=== PATIENT | male | born 1945 | race Caucasian/White ===

== ENCOUNTER 2016-12-09 01:53 | Emergency (ER) | payer OTHER, BC ==
[~2016-12-09] VITALS: Ht 172.7 cm; Wt 88.5 kg
[2016-12-09] MEDS ORDERED: FISH OIL 1,001000 M2 PO (02:43)
[2016-12-09] MEDS ORDERED: BAYER ADVANCED500 MG (02:43)
[2016-12-09] MEDS ORDERED: PROZAC20 MG (02:44)
[2016-12-09] MEDS ORDERED: CENTRUM SILVER1 EAC4 PO (02:44)
[2016-12-09] MEDS ORDERED: CARVEDILOL12.5 MG PO (02:45)
[2016-12-09] MEDS ORDERED: PRAVACHOL40 MG PO (02:46)
[2016-12-09] MEDS ORDERED: ALTACE10 MG PO (02:46)
[2016-12-09] MEDS ORDERED: METFORMIN HCL500 MG PO (02:47)
[2016-12-09 04:30] VITALS: BP 129/78
== END 2016-12-09 04:31 | disposition home or self-care (01) ==
LOC: ER 01:53
DX: T38.3X5A Adverse effect of insulin and oral hypoglycemic [antidiabetic] drugs, initial encounter (principal); Y92.9 Unspecified place or not applicable; E11.9 Type 2 diabetes mellitus without complications